=== PATIENT | female | born 1965 | race Caucasian/White ===

== ENCOUNTER → 2020-12-18 | Outpatient (CLI) | payer OTHER ==
[~2020-12-18] MED LIST: OMNIPAQUE 350 MG/ML, 100ML BOTTLE ONE
[2020-12-18 10:11] LABS: CREATININE 1.13 mg/dL (0.55-1.02)
== END | disposition home or self-care (01) ==
LOC: RAD 09:36
PROVIDERS: ATTEND Surgery Vascular Surgery
DX: I72.2 Aneurysm of renal artery (principal); N28.1 Cyst of kidney, acquired
CPT/HCPCS: 36415; 74174; 82565; Q9967